=== PATIENT | male | born 1940 | race Two or more races ===

== ENCOUNTER 2019-06-15 13:15 | Outpatient (CLI) | payer MEDICARE | END 2019-06-15 23:59 | disposition home or self-care (01) | LOC: WOU 13:15 | PROVIDERS: ATTEND Podiatrist Foot & Ankle Surgery | DX: M79.672 Pain in left foot (principal); R26.2 Difficulty in walking, not elsewhere classified; G90.09 Other idiopathic peripheral autonomic neuropathy; Z79.82 Long term (current) use of aspirin | CPT/HCPCS: G0463 ==

== ENCOUNTER 2019-08-03 13:45 | Outpatient (CLI) | payer MEDICARE ==
[2019-08-03] MEDS ORDERED: DEXAMETHASONE SOD PHOSPHATE 4 MG/ML VIAL IJ ONE (15:00)
[2019-08-03] MEDS ORDERED: TRIAMCINOLONE ACETONIDE SUSP 40 MG/ML 1 ML IJ ONE (15:00)
== END 2019-08-03 23:59 | disposition home or self-care (01) ==
LOC: WOU 13:45
PROVIDERS: ATTEND Podiatrist Foot & Ankle Surgery
DX: G57.62 Lesion of plantar nerve, left lower limb (principal); R26.2 Difficulty in walking, not elsewhere classified; G90.09 Other idiopathic peripheral autonomic neuropathy
CPT/HCPCS: 64455; J1100; J3490